=== PATIENT | female | born 1975 | race Caucasian/White ===

== ENCOUNTER → 2017-03-22 | Outpatient (CLI) | payer BC, OTHER ==
--- NOTE | 2017-03-22 19:45 | Diagnostic Imaging Report ---
Digital mammogram bilateral screening with tomosynthesis. This study was compared to the prior exam of 03/18/2016. At this time, there are no current complaints. The current study was also evaluated with a Computer Aided Detection (CAD) system. FINDINGS: The fibroglandular tissue in both breasts is heterogeneously dense. This does limit the sensitivity of this exam. Overall, there does not appear to have been any significant change when compared to the prior study. No primary or secondary sign of malignancy is noted. 3D tomographic images fail to show any sign of malignancy. IMPRESSION: There is no radiographic evidence for malignancy. ACR BI-RADS Category 1: Negative. Result letter will be mailed to the patient. Note: At least 10% of breast cancer is not imaged by mammography. Dictated by: Dictated on workstation # [id number]
== END ==
LOC: RAD 13:21
PROVIDERS: ATTEND Obstetrics & Gynecology
DX: Z12.31 Encounter for screening mammogram for malignant neoplasm of breast (principal)
CPT/HCPCS: 77067

== ENCOUNTER → 2018-03-24 | Outpatient (CLI) | payer BC ==
--- NOTE | 2018-03-27 09:52 | Diagnostic Imaging Report ---
INDICATION: Routine screening. COMPARISON: 03/22/2017 and 03/18/2016. TECHNIQUE: 2D and 3D bilateral screening mammography was performed with CAD. FINDINGS: Both breasts are heterogeneously dense, limiting the sensitivity of mammography. The parenchymal pattern is stable. No mass or malignant appearing microcalcifications are seen. The axillae are unremarkable. IMPRESSION: No mammographic features suspicious for malignancy are identified. ACR BI-RADS Category 1: Negative. Result letter will be mailed to the patient. Note: At least 10% of breast cancer is not imaged by mammography. Dictated by: Dictated on workstation # [id number]
== END ==
LOC: RAD 14:11
PROVIDERS: ATTEND Obstetrics & Gynecology
DX: Z12.31 Encounter for screening mammogram for malignant neoplasm of breast (principal)
CPT/HCPCS: 77067

== ENCOUNTER 2019-05-25 19:42 | Emergency (ER) | payer BC ==
[2019-05-25 20:11] LABS: BILIRUBIN,URINE NEGATIVE (NEGATIVE); CLARITY,URINE CLEAR; COLOR,URINE YELLOW; GLUCOSE, URINE (UA) NEGATIVE (NEGATIVE); KETONES,URINE 2+ (NEGATIVE); LEUKOCYTE ESTERASE ,URINE 2+ (NEGATIVE); NITRITE,URINE NEGATIVE (NEGATIVE); PH,URINE 6 (5-9); PROTEIN,URINE NEGATIVE (NEGATIVE)
[2019-05-25 20:26] LABS: BACTERIA,URINE MODERATE /HPF
[2019-05-25 20:26] LABS: BASOPHILS % (AUTO) 0 % (0-10); EOSINOPHILS # (AUTO) 0.1 10^3/uL (0.0-0.3); EOSINOPHILS % (AUTO) 1 % (0-10); HEMATOCRIT 39 % (35-52); HEMOGLOBIN 13.3 G/DL (11.5-16.0); LYMPHOCYTES # (AUTO) 2.2 X 10^3 (1.0-4.0); LYMPHOCYTES % (AUTO) 18 % (12-44); MEAN CORPUSCULAR HEMOGLOBIN 33 PG (25-34); MEAN CORPUSCULAR HGB CONC 34 G/DL (32-36); MEAN CORPUSCULAR VOLUME 96 FL (80-99); MEAN PLATELET VOLUME 9.5 FL (7.4-10.4); MONOCYTES # (AUTO) 0.7 X 10^3 (0.0-1.0); MONOCYTES % (AUTO) 6 % (0-12); NEUTROPHILS # (AUTO) 9.7 X 10^3 (1.8-7.8); NEUTROPHILS % (AUTO) 76 % (42-75); PLATELET COUNT 212 10^3/uL (130-400); RED CELL DISTRIBUTION WIDTH 12.7 % (10.0-14.5); WHITE BLOOD COUNT 12.8 10^3/uL (4.3-11.0)
[2019-05-25 20:48] LABS: ALANINE AMINOTRANSFERASE 20 U/L (0-55); ALBUMIN 4.4 GM/DL (3.2-4.5); ALKALINE PHOSPHATASE 46 U/L (40-136); AMYLASE 29 U/L (25-125); BILIRUBIN,TOTAL 0.9 MG/DL (0.1-1.0); BUN/CREATININE RATIO 8; CALCIUM 8.8 MG/DL (8.5-10.1); CARBON DIOXIDE 23 MMOL/L (21-32); CHLORIDE 106 MMOL/L (98-107); CREATININE SERUM 0.85 MG/DL (0.60-1.30); GFR ESTIMATED > 60; GLUCOSE 95 MG/DL (70-105); LIPASE 10 U/L (8-78); POTASSIUM 3.4 MMOL/L (3.6-5.0); SODIUM 140 MMOL/L (135-145); TOTAL PROTEIN 7.1 GM/DL (6.4-8.2)
[2019-05-25] MEDS ORDERED: LACTATED RINGERS 1,000 ML IV ONE (21:08)
[2019-05-25] MEDS ORDERED: cefTRIAXone FOR IV USE 1,000 MG in WATER (STERILE) FOR INJECTION 10 ML IV ONE (21:15)
[2019-05-25] MEDS ORDERED: KETOROLAC 30 MG/ML VIAL IVP ONE (21:15)
[2019-05-25] MEDS ORDERED: NS 100 ML (IVPB) BAG IV ONE (21:30)
[2019-05-25] MEDS ORDERED: IOHEXOL 350 MG/ML 100 ML (OMNIPAQUE 350) VIAL IV ONE (21:30)
--- NOTE | 2019-05-25 21:30 | Diagnostic Imaging Report ---
Clinical indication: Patient complains of umbilical abdominal pain x5 hours. Exam: X-ray of the abdomen with multiple supine and upright views. Comparison: None. Findings: There is a nonobstructed bowel gas pattern. There is no evidence of abdominal free air. There is a [id number]-hu-klrdcuoa amount of stool throughout the colon. There are no focal calcifications overlying the expected regions/ pathways of both kidneys, ureters, and bladder regions. There are hypertrophic spurs involving the visualized lower thoracic and lumbar spine. There is mild right curvature of the lumbar spine. Impression: There is no radiographic evidence for acute abdominal/ pelvic process or urinary tract stones. Dictated by: Dictated on workstation # [id number]
--- NOTE | 2019-05-25 21:57 | Diagnostic Imaging Report ---
Clinical data: Patient with umbilical abdominal pain x 5 hours. Negative hCG in emergency room. Comparison: None. Exam: CT scan of the abdomen and pelvis performed with 75 mL of Omnipaque 350 IV contrast. Coronal and sagittal reformatted images were created. Portal venous and delayed phases were obtained. Auto Exposure Controls were utilized during the CT exam to meet ALARA standards for radiation dose reduction. Findings: Liver: Unremarkable. Gallbladder: Unremarkable. Pancreas: Unremarkable. Spleen: Unremarkable. Adrenal glands: Unremarkable, as visualized. Kidneys: Unremarkable. Lymph nodes: None enlarged. Pelvic organs: Unremarkable, as visualized. Intestines: Unremarkable. Appendix: Unremarkable. Bones: There are hypertrophic spurs involving the visualized thoracic and lumbar spine and lower lumbar spine facet arthropathy. Other findings: There is no intra-abdominal free fluid or free air. Impression: There is no acute abdominal or pelvic process. The appendix is unremarkable, as visualized. Dictated by: Dictated on workstation # [id number]
[2019-05-25] MEDS ORDERED: PHEN-640 PO (22:09)
[2019-05-25] MEDS ORDERED: NITR-65 PO (22:09)
[2019-05-25] MEDS ORDERED: TRAM-42 PO (22:10)
--- NOTE | 2019-05-25 22:10 | ED Abdominal Pain ---
General Chief Complaint: Abdominal/GI Problems Stated Complaint: ABD PAIN - FEVER Allergies and Home Medications Allergies Coded Allergies: Penicillins (Verified Allergy, Unknown, 05/25/19) Past Fgoghns-Gzlafy-Uofrcf Hx Patient Social History Recent Foreign Travel: No Contact w/Someone Who Travel: No Physical Exam Vital Signs Capillary Refill : Height/Weight/BMI Height: '" Weight: lbs. oz. kg; BMI Method: Focused Exam Lactate Level 05/25/19 20:25: Lactic Acid Level 1.46 Lactic Acid Level Laboratory Tests Test 05/25/19 20:25 Lactic Acid Level 1.46 MMOL/L (0.50-2.00) Progress/Results/Core Measures Results/Orders Lab Results Laboratory Tests Test 05/25/19 20:04 05/25/19 20:19 05/25/19 20:25 Range/Units Urine Color YELLOW Urine Clarity CLEAR Urine pH 6 5-9 Urine Specific [place] 1.010 L 1.016-1.022 Urine Protein NEGATIVE NEGATIVE Urine Glucose (UA) NEGATIVE NEGATIVE Urine Ketones 2+ H NEGATIVE Urine Nitrite NEGATIVE NEGATIVE Urine Bilirubin NEGATIVE NEGATIVE Urine Urobilinogen NORMAL NORMAL MG/DL Urine Leukocyte Esterase 2+ H NEGATIVE Urine RBC (Auto) NEGATIVE NEGATIVE Urine RBC NONE /HPF Urine WBC 10-25 H /HPF Urine Squamous Epithelial Cells 2-5 /HPF Urine Crystals NONE /LPF Urine Bacteria MODERATE H /HPF Urine Casts NONE /LPF Urine Mucus NEGATIVE /LPF Urine Culture Indicated YES White Blood Count 12.8 H 4.3-11.0 10^3/uL Red Blood Count 4.07 L 4.35-5.85 10^6/uL Hemoglobin 13.3 11.5-16.0 G/DL Hematocrit 39 35-52 % Mean Corpuscular Volume 96 80-99 FL Mean Corpuscular Hemoglobin 33 25-34 PG Mean Corpuscular Hemoglobin Concent 34 32-36 G/DL Red Cell Distribution Width 12.7 10.0-14.5 % Platelet Count 212 130-400 10^3/uL Mean Platelet Volume 9.5 7.4-10.4 FL Neutrophils (%) (Auto) 76 H 42-75 % Lymphocytes (%) (Auto) 18 12-44 % Monocytes (%) (Auto) 6 0-12 % Eosinophils (%) (Auto) 1 0-10 % Basophils (%) (Auto) 0 0-10 % Neutrophils # (Auto) 9.7 H 1.8-7.8 X 10^3 Lymphocytes # (Auto) 2.2 1.0-4.0 X 10^3 Monocytes # (Auto) 0.7 0.0-1.0 X 10^3 Eosinophils # (Auto) 0.1 0.0-0.3 10^3/uL Basophils # (Auto) 0.0 0.0-0.1 10^3/uL Sodium Level 140 135-145 MMOL/L Potassium Level 3.4 L 3.6-5.0 MMOL/L Chloride Level 106 98-107 MMOL/L Carbon Dioxide Level 23 21-32 MMOL/L Anion Gap 11 5-14 MMOL/L Blood Urea Nitrogen 7 7-18 MG/DL Creatinine 0.85 0.60-1.30 MG/DL Estimat Glomerular Filtration Rate > 60 BUN/Creatinine Ratio 8 Glucose Level 95 70-105 MG/DL Calcium Level 8.8 8.5-10.1 MG/DL Corrected Calcium 8.5 8.5-10.1 MG/DL Total Bilirubin 0.9 0.1-1.0 MG/DL Aspartate Amino Transf (AST/SGOT) 19 5-34 U/L Alanine Aminotransferase (ALT/SGPT) 20 0-55 U/L Alkaline Phosphatase 46 40-136 U/L Total Protein 7.1 6.4-8.2 GM/DL Albumin 4.4 3.2-4.5 GM/DL Amylase Level 29 25-125 U/L Lipase 10 8-78 U/L Serum Test, Qualitative NEGATIVE NEGATIVE Lactic Acid Level 1.46 0.50-2.00 MMOL/L My Orders Orders - IVONNE STAPLES DO Ed Iv/Invasive Line Start (05/25/19 20:02) Amylase (05/25/19 20:02) Cbc With Automated Diff (05/25/19 20:02) Comprehensive Metabolic Panel (05/25/19 20:02) Hcg,Qualitative Serum (05/25/19 20:) Lactic Acid Analyzer (05/25/19 20:02) Lipase (05/25/19 20:02) Ua Culture If Indicated (05/25/19 20:02) Urine Culture (05/25/19 20:04) Ct Abd/Pelv W (Appendicitis) (05/25/19 21:01) Abdomen, Flat & Upright/Decub (05/25/19 21:01) Ketorolac Injection (Toradol Injection) (05/25/19 21:15) Ed Iv/Invasive Line Start (05/25/19 21:08) Lactated Ringers (Lr 1000 Ml Iv Solution (05/25/19 21:08) Ceftriaxone For Iv Use (Rocephin For I (05/25/19 21:15) Iohexol Injection (Omnipaque 350 Mg/Ml 1 (05/25/19 21:30) Ns (Ivpb) (Sodium Chloride 0.9% Ivpb Bag (05/25/19 21:30) Phenazopyridine Tablet (Pyridium Tablet) (05/25/19 22:15) Fentanyl Injection (Sublimaze Injection (05/25/19 22:15) Medications Given in ED Current Medications Medications Dose Ordered Sig/Patrice Route Start Time Stop Time Status Last Admin Dose Admin Ceftriaxone Sodium 1000 mg/ Sterile Water 10 ml @ 200 mls/hr ONCE ONCE IV 05/25/19 21:15 05/25/19 21:17 DC 05/25/19 21:36 200 MLS/HR Iohexol 100 ml ONCE ONCE IV 05/25/19 21:30 05/25/19 21:31 DC 05/25/19 21:45 75 ML Ketorolac Tromethamine 30 mg ONCE ONCE IVP 05/25/19 21:15 05/25/19 21:28 DC 05/25/19 21:36 30 MG Lactated Ringer's 1,000 ml @ 0 mls/hr Q0M ONCE IV 05/25/19 21:08 05/25/19 21:10 DC 05/25/19 21:36 0 MLS/HR Sodium Chloride 80 ml ONCE ONCE IV 05/25/19 21:30 05/25/19 21:31 DC 05/25/19 21:45 80 ML Departure Impression Primary Impression: Urinary tract infection Disposition: 01 HOME, SELF-CARE Condition: Improved Departure-Patient Inst. Referrals: NO,LOCAL PHYSICIAN (PCP/Family) Primary Care Physician Patient Instructions: Urinary Tract Infection, Adult (DC) Add. Discharge Instructions: LOTS OF CLEAR LIQUIDS--DRINK ENOUGH SO YOU ARE URINATING EVERY 2-3 HOURS WHILE AWAKE TYLENOL AND MOTRIN NEEDED FOR PAIN FOLLOW UP WITH YOUR DR IN 2-3 DAYS FOR FURTHER CARE All discharge instructions reviewed with patient and/or family. Voiced unders tanding. Scripts Tramadol HCl (Ultram) 50 Mg Tablet 50 MG PO Q4H PRN for PAIN-MODERATE for 3 Days, TAB Prov: IVONNE STAPLES DO 05/25/19 Phenazopyridine HCl (Pyridium) 200 Mg Tablet 1 TAB PO TID for BLADDER DISCOMFORT, #15 TAB Prov: IVONNE STAPLES DO 05/25/19 Nitrofurantoin Monohyd/M-Cryst (Macrobid 100 mg Capsule) 100 Mg Capsule 100 MG PO BID, #20 CAP Prov: IVONNE STAPLES DO 05/25/19 IVONNE STAPELS DO May 25, 2019 22:10
[2019-05-25] MEDS ORDERED: fentaNYL INJECTION 100 MCG/2 ML AMP IVP ONE (22:15)
[2019-05-25] MEDS ORDERED: PHENAZOPYRIDINE 100 MG (PYRIDIUM) TABLET PO ONE (22:15)
[2019-05-25 22:43] VITALS: BP 128/70
== END 2019-05-25 22:43 | disposition home or self-care (01) ==
LOC: EDUNIT# 19:42 → ER 19:43
DX: N39.0 Urinary tract infection, site not specified (principal); Z88.0 Allergy status to penicillin
CPT/HCPCS: 36415; 74019; 74177; 80053; 81000; 82150; 83605; 83690; 84703; 85025; 87088

== ENCOUNTER → 2020-04-04 | Outpatient (CLI) | payer BC ==
[~2020-04-04] MED LIST: NITR-65 PO; PHEN-640 PO; TRAM-42 PO
--- NOTE | 2020-04-07 09:26 | Diagnostic Imaging Report ---
INDICATION: Screening. TECHNIQUE: Screening digital mammography was performed bilaterally with a Computer Aided Detection (CAD) system. COMPARISON: 03/30/2019, 03/24/2018, and 03/22/2017. FINDINGS: There are scattered fibroglandular densities bilaterally. There are a few benign type calcifications. There is no dominant mass, spiculated lesion, or suspicious calcification identified. The skin, nipples, and axillae are unremarkable. IMPRESSION: Benign findings. ACR BI-RADS Category 2: Benign findings. Result letter will be mailed to the patient. Note: At least 10% of breast cancer is not imaged by mammography. Dictated by: Dictated on workstation # [id number]
== END ==
LOC: RAD 14:15
PROVIDERS: ATTEND Obstetrics & Gynecology
DX: Z12.31 Encounter for screening mammogram for malignant neoplasm of breast (principal)
CPT/HCPCS: 77063; 77067

== ENCOUNTER → 2021-04-17 | Outpatient (CLI) | payer BC ==
--- NOTE | 2021-04-17 12:35 | Diagnostic Imaging Report ---
INDICATION: Routine screening. COMPARISON is made with prior mammograms 04/04/2020 and 03/30/2019. 2-D and 3-D bilateral screening mammography was performed with CAD. Both breasts are heterogeneously dense, limiting the sensitivity of mammography. The parenchymal pattern is stable. No mass or malignant-appearing microcalcifications are seen. Axillae are unremarkable. IMPRESSION: BI-RADS Category 1 No mammographic features suspicious for malignancy are identified. ACR BI-RADS Category 1: Negative. Result letter will be mailed to the patient. Note: At least 10% of breast cancer is not imaged by mammography. Dictated by: Dictated on workstation # [id number]
== END ==
LOC: RAD 15:45
PROVIDERS: ATTEND Obstetrics & Gynecology
DX: Z12.31 Encounter for screening mammogram for malignant neoplasm of breast (principal)
CPT/HCPCS: 77063; 77067

== ENCOUNTER → 2022-04-20 | Outpatient (CLI) | payer BC ==
--- NOTE | 2022-04-20 12:51 | Diagnostic Imaging Report ---
Indication: Routine screening. Comparison is made with prior mammogram 04/17/2021 and 04/04/2020. 2-D and 3-D bilateral screening mammography was performed with CAD. CAD is utilized. The current study was also evaluated with a Computer Aided Detection (CAD) system. Both breasts are heterogeneously dense, limiting the sensitivity of mammography. The parenchymal pattern is stable. No mass or malignant-appearing microcalcifications are seen. Axillae are unremarkable. IMPRESSION: BI-RADS Category 1 No mammographic features suspicious for malignancy are identified. ACR BI-RADS Category 1: Negative. Result letter will be mailed to the patient. Note: At least 10% of breast cancer is not imaged by mammography. Dictated by: Dictated on workstation # [id number]
== END ==
LOC: RAD 08:45
PROVIDERS: ATTEND Obstetrics & Gynecology
DX: Z12.31 Encounter for screening mammogram for malignant neoplasm of breast (principal)
CPT/HCPCS: 77063; 77067

== ENCOUNTER → 2023-04-21 | Outpatient (CLI) | payer BC ==
--- NOTE | 2023-04-21 13:21 | Diagnostic Imaging Report ---
INDICATION: Routine screening. Comparison is made with prior mammogram from 04/20/2022 and 04/17/2021. 2-D and 3-D bilateral screening mammography was performed with CAD. The current study was also evaluated with a Computer Aided Detection (CAD) system. Both breasts are heterogeneously dense, limiting the sensitivity of mammography. The parenchymal pattern is stable. No mass or malignant-appearing microcalcifications are seen. Axillae are unremarkable. IMPRESSION: BI-RADS Category 1 No mammographic features suspicious for malignancy are identified. ACR BI-RADS Category 1: Negative. Result letter will be mailed to the patient. Note: At least 10% of breast cancer is not imaged by mammography. Dictated by: Dictated on workstation # [id number]
== END ==
LOC: RAD 07:55
PROVIDERS: ATTEND Obstetrics & Gynecology
DX: Z12.31 Encounter for screening mammogram for malignant neoplasm of breast (principal)
CPT/HCPCS: 77063; 77067